=== PATIENT | female | born 1990 | race Caucasian/White ===

== ENCOUNTER 2017-04-19 13:23 | Outpatient (CLI) | payer BC ==
[~2017-04-19] VITALS: Ht 162.6 cm; Wt 75.9 kg
[2017-04-19 13:35] VITALS: BP 113/61; PULSE 83; RESP 18
[2017-04-19 13:36] VITALS: Ht 162.6 cm; Wt 75.9 kg
[2017-04-19 14:20] LABS: ADD UMIC NO; UR ASCORBIC ACID 40 mg/dL (NEGATIVE); UR BACTERIA FEW /HPF (NONE SEEN); UR BILIRUBIN (Dip) NEGATIVE (NEGATIVE); UR BLOOD (Dip) NEGATIVE (NEGATIVE); UR CLARITY SLIGHTLY CLOUDY (CLEAR); UR COLOR YELLOW (YELLOW); UR GLUCOSE (Dip) NEGATIVE (NEGATIVE); UR KETONES (Dip) NEGATIVE (NEGATIVE); UR LEUKOCYTE ESTERASE (Dip) NEGATIVE Leu/ul (NEGATIVE); UR MUCUS FEW /HPF (NONE SEEN); UR NITRITE (Dip) NEGATIVE (NEGATIVE); UR RBC 11 /HPF (0-5); UR SPECIFIC GRAVITY (Dip) 1.025 (1.003-1.030); UR SQUAMOUS EPITHELIAL CELL MODERATE /HPF (FEW); UR TOTAL PROTEIN (Dip) NEGATIVE (NEGATIVE); UR UROBILINOGEN (Dip) 2+ mg/dL (NEGATIVE)
[2017-04-19 14:49] LABS: BASOPHILS % 0.4 % (0.0-2.0); EOSINOPHILS # 0.1 10^3/ul (0.0-0.5); HEMATOCRIT 32.8 % (37.0-47.0); HEMOGLOBIN 10.7 g/dl (12.0-16.0); LYMPHOCYTES # 1.8 10^3/ul (0.8-2.9); LYMPHOCYTES % 17.4 % (15.0-51.0); MEAN CORPUSCULAR HEMOGLOBIN 29.5 pg (29.0-33.0); MEAN CORPUSCULAR HGB CONC 32.6 g/dl (32.0-37.0); MEAN CORPUSCULAR VOLUME 90.4 fl (82.0-101.0); MONOCYTE # 1.3 10^3/ul (0.3-0.9); MONOCYTES % 12.5 % (0.0-11.0); NEUTROPHIL # 6.4 10^3/ul (1.6-7.5); PLATELET COUNT 243 10^3/UL (140-415); RED BLOOD COUNT 3.63 10^6/ul (4.20-5.40); RED CELL DISTRIBUTION WIDTH 14.1 % (11.5-14.5)
[2017-04-19 15:10] LABS: ALBUMIN 3.1 g/dl (3.3-4.9); ALBUMIN/GLOBULIN RATIO 0.96; CALCIUM 8.2 mg/dl (8.4-10.2); CREATININE 0.46 mg/dl (0.44-1.00); POTASSIUM 3.6 mmol/L (3.5-5.1); TOTAL PROTEIN 6.3 g/dl (6.1-8.1)
--- NOTE | 2017-04-19 17:43 | PN ---
Triage Information Date/Time Reason for visit: Weeks of Gestation Patient is a 26-year-old 2 para 1 at 28 weeks and 6 days of gestation with estimated date of delivery July 06, 2017 She presents with chief complaint of nausea and vomiting after eating heavy greasy food Patient reports positive movement and she has no other complaints /Para 2 para 1 Objective Vital Signs Date Time Temp Pulse Resp B/P Pulse Ox O2 Delivery O2 Flow Rate FiO2 04/19/17 13:35 97.7 83 18 113/61 Room Air Heart Rate: 140's Heart Rate Comments Category 1 Contractions: None Results/Medications Result Diagram: 04/19/17 1416 04/19/17 1416 Results 24 hrs Laboratory Tests Test 04/19/17 14:00 04/19/17 14:16 Urine Color YELLOW Urine Clarity SLIGHTLY CLOUDY A Urine pH 5.0 Urine Specific [place] 1.025 Urine Ketones NEGATIVE Urine Nitrite NEGATIVE Urine Bilirubin NEGATIVE Urine Urobilinogen 2+ H Urine Leukocyte Esterase NEGATIVE Urine Microscopic RBC 11 H Urine Microscopic WBC 2 Urine Squamous Epithelial Cells MODERATE Urine Bacteria FEW A Urine Mucus FEW A Urine Hemoglobin NEGATIVE Urine Glucose NEGATIVE Urine Total Protein NEGATIVE White Blood Count 10.0 Red Blood Count 3.63 L Hemoglobin 10.7 L Hematocrit 32.8 L Mean Corpuscular Volume 90.4 Mean Corpuscular Hemoglobin 29.5 Mean Corpuscular Hemoglobin Concent 32.6 Red Cell Distribution Width 14.1 Platelet Count 243 Mean Platelet Volume 10.0 Neutrophils % 64.0 Lymphocytes % 17.4 Monocytes % 12.5 H Eosinophils % 1.0 Basophils % 0.4 Nucleated Red Blood Cells % 0.0 Neutrophils # 6.4 Lymphocytes # 1.8 Monocytes # 1.3 H Eosinophils # 0.1 Basophils # 0.0 Nucleated Red Blood Cells # 0.0 Sodium Level 137 Potassium Level 3.6 Chloride Level 106 Carbon Dioxide Level 21 Anion Gap 14 Blood Urea Nitrogen 6 L Creatinine 0.46 Glucose Level 83 Calcium Level 8.2 L Total Bilirubin 0.0 L Direct Bilirubin 0.00 Indirect Bilirubin 0.0 Aspartate Amino Transf (AST/SGOT) 19 Alanine Aminotransferase (ALT/SGPT) 31 Alkaline Phosphatase 111 Total Protein 6.3 Albumin 3.1 L Globulin 3.20 Albumin/Globulin Ratio 0.96 Disposition: Discharge Assessment/Plan CBC, CMP and UA all within normal limits Patient instructed to increase p.o. hydration Patient was instructed to follow-up with her own [employer] in 2-3 days CLEOPATRA GARRETT MD Apr 19, 2017 17:43
--- NOTE | 2017-04-19 17:54 | TRIAGE ---
OB Triage Datetime Report Generated by CPN: 04/19/2017 17:54 Datetime: 04/19/2017 17:29 Stage of : OB Triage Datetime: 04/19/2017 17:07 Labor Evaluation Frequency: 0 Monitor Mode: External Resting Tone [place]: Relaxed Heart Rate FHR Baseline Rate: 125 Monitor Mode: External US Variability: Moderate 6-25 bpm Accelerations: 10X10 Decelerations: None Category: Category I Pain Assessment Pain Scale: 0 Pain Presence: None/Denies Pain Type: N/A Pain Goal: 3 Pain Relief Measures: Comfort Measures Datetime: 04/19/2017 17:00 Stage of : OB Triage Datetime: 04/19/2017 16:05 Labor Evaluation Frequency: 0 Monitor Mode: External Pattern: Normal: <= 5 Contractions in 10 Minutes Resting Tone [place]: Relaxed Heart Rate FHR Baseline Rate: 125 Monitor Mode: External US Variability: Moderate 6-25 bpm Accelerations: 10X10 Decelerations: None Category: Category I Pain Assessment Pain Scale: 0 Pain Presence: None/Denies Pain Type: N/A Pain Goal: 3 Pain Relief Measures: Comfort Measures Datetime: 04/19/2017 15:38 Stage of : OB Triage Datetime: 04/19/2017 15:31 Stage of : OB Triage Datetime: 04/19/2017 15:01 Labor Evaluation Frequency: 0 Monitor Mode: External Pattern: Normal: <= 5 Contractions in 10 Minutes Resting Tone [place]: Relaxed Heart Rate FHR Baseline Rate: 135 Monitor Mode: External US Variability: Moderate 6-25 bpm Accelerations: 10X10 Decelerations: None Category: Category I Pain Assessment Pain Scale: 0 Pain Presence: None/Denies Pain Type: N/A Pain Goal: 3 Pain Relief Measures: Comfort Measures Datetime: 04/19/2017 13:59 Labor Evaluation Frequency: none Pattern: Normal: <= 5 Contractions in 10 Minutes Resting Tone [place]: Relaxed Heart Rate FHR Baseline Rate: 145 FHR Baseline Changes: No Baseline Change Variability: Moderate 6-25 bpm Accelerations: 15X15 Decelerations: None Category: Category I Vaginal Exam Membrane Status: Intact Datetime: 04/19/2017 13:33 Stage of : OB Triage Maternal Assessment Level of Consciousness: Fully Conscious DTR's/Clonus: DTRs 2+; No Clonus Headache: Denies Blurred Vision: No Respiratory Effort: Unlabored; Regular Rhythm; Equal Expansion Breath Sounds, Left: Clear and Equal Breath Sounds, Right: Clear and Equal Nausea/Vomiting: Denies RUQ Epigastric Pain: Denies Lower Extremities Edema: None Degree: None Upper Extremities Edema: None Degree: None Facial Edema: None Temperature Route: Oral Fall Risk Assessment History of Falling: (0) No Secondary Diagnosis: (0) No Ambulatory Aid: (0) Bedrest/Nurse Assist IV Therapy: (0) No Gait: (0) Normal/Bedrest/Immobile Mental Status: (0) Oriented to Own Ability Fall Score: 0 Fall Risk Score Definition: No Risk: No action required Monitor Mode: External Heart Rate FHR Baseline Rate: 133 Monitor Mode: External US Pain Assessment Pain Scale: 0 Datetime: 04/19/2017 13:30 Time of Arrival: 04/19/2017 13:13 EGA: 28.6 Arrived By: Ambulatory Arrived From: Home Chief Complaint: n/v since on and off, yeast infection Movement: Present Contractions: Denies/Absent Rupture of Membranes: Denies Vaginal Discharge: Present Recent Sexual Intercouse: Denies Abdominal Trauma: Not Applicable Patient Complaints: Other Time Provider Notified: 04/19/2017 13:56 Provider Notified: Dr Fatima Initial Plan: efm, culture urine, UA, CBC, CMP
== END 2017-04-19 17:41 | disposition home or self-care (01) ==
LOC: OBT 13:23 → L-D 13:23 → OBT 17:41
PROVIDERS: ATTEND Obstetrics & Gynecology
DX: O21.8 Other vomiting complicating pregnancy (principal); Z3A.28 28 weeks gestation of pregnancy
CPT/HCPCS: 80053; 81001; 81003; 85025; 87086; Z7500; G0463

== ENCOUNTER 2017-06-15 13:15 | Outpatient (CLI) | END 2017-06-15 15:53 | disposition home or self-care (01) ==

== ENCOUNTER 2017-06-29 18:18 | Inpatient (IN) | END 2017-07-02 23:00 | disposition home or self-care (01) | DRG 775 ==

== ENCOUNTER 2017-07-04 19:01 | Emergency (ER) | END 2017-07-04 20:16 | disposition left against medical advice (07) ==